=== PATIENT | male | born 1985 | race Hispanic/Latino ===

== ENCOUNTER 2017-05-23 01:28 | Emergency (ER) | payer SELFPAY ==
[~2017-05-23] VITALS: Ht 162.6 cm; Wt 72.7 kg
[2017-05-23 01:37] VITALS: BP 115/73; PULSE 63; RESP 15; O2SAT 100
--- NOTE | 2017-05-23 01:44 | ED.REPORT ---
HPI-Rash / Abscess Date of Service May 23, 2017 ED Provider: Valentín Branham MD The pt is a 31 y/o male with no pertinent hx who presents to the ED complaining of diffuse rash for several years which is now getting worse. Associated sx include intermittent itching. He denies wheezing, rash on the palms of his hands , rash inside his mouth and family hx of similar sx. The pt's job involves concrete work. The pt is at risk for HIV due to multiple prostitute sexual contact. He denies using IV drugs and having male sexual partners. He has been tested for HIV in the past which resulted negative. Nursing Notes Stated Complaint: RASH ON BOTH ARMS Chief Complaint: Skin Rash/Abscess Nursing Notes Reviewed: Yes Allergies: Coded Allergies: No Known Allergies (Unverified , 06/24/13) Scheduled Loratadine (Claritin) 10 Mg Capsule 10 MG PO DAILY Prednisone (PredniSONE) 20 Mg Tablet 60 MG PO DAILY Triamcinolone Acetonide (Triamcinolone Acetonide) 60 Ml Lotion 1 APPLIC TOP BID General Time Seen by MD: 01:43 Chief Complaint Rash Hx Obtained From: Patient Arrived By: Walk-in Onset Occurred: More than a week ago... (>6 months) Symptom Duration: Since onset Severity: Current: No pain currently Severity: Maximum: No pain Recent Healthcare: No recent doctor visit Past Medical History Past Medical History Risk factor for HIV. Tested negative in the past. Past Surgical History none reported Smoking History Unknown if Ever Smoker Social History Other Social History: Good social support Ambulatory Status Independent Review of Systems Denies: rash on the palms of his hands, rash inside his mouth Respiratory: Denies: Wheezing Skin: Reports Itching (intermittent), Reports Rash (diffuse) Complete sys rev & neg: except as marked. Physical Exam Initial Vital Signs Vital Signs (First) Date Time Temp Pulse Resp B/P Pulse Ox O2 Delivery O2 Flow Rate FiO2 05/23/17 01:37 36.3 63 15 115/73 100 Room Air Initial VS: Reviewed Head / Eyes: Atraumatic, Normocephalic Neck: Supple, Non-tender, Full range of motion Respiratory: Breath sounds normal, Clear to auscultation, No respiratory distress Cardiovascular: Regular rate & rhythm, Heart sounds normal, Intact distal pulses Abdomen / GI: Soft, Non-tender Extremities: Vascular intact, Neuro intact, No swelling, No tenderness Neurologic: Alert, Oriented, Nonfocal General/Constitutional: Awake, Alert, No acute distress, Cooperative Skin: Atraumatic, Warm, Dry, Intact Maculopapular rash prominent on the back of his hands, upper chest, neck, arms, and back. Palms, mouth and sclera are clear. Interpretation & Diagnostics Lab Results Interpretation Result Diagram: 05/23/17 0220 05/23/17 0220 Test 05/23/17 02:20 White Blood Count 8.1th/mm3 (3.8-10.1) Red Blood Count 4.61mil/mm3 (4.40-5.80) Hemoglobin 13.8g/dL (13.8-17.2) Hematocrit 40.7% (41.0-50.0) Mean Corpuscular Volume 88.3fL (81-100) Mean Corpuscular Hemoglobin 29.9pg (27.0-35.0) Mean Corpuscular Hemoglobin Concent 33.9% (32.0-37.0) Red Cell Distribution Width 13.6% (12.3-15.4) Platelet Count 202bil/L (150-400) Neutrophils (%) (Auto) 49.5% (40-74) Lymphocytes (%) (Auto) 35.4% (14-46) Monocytes (%) (Auto) 10.6% (4-12) Eosinophils (%) (Auto) 4.0% (0-5) Basophils (%) (Auto) 0.4% (0-3) Erythrocyte Sedimentation Rate 1mm/hr (0-15) Sodium Level 144mEq/L (134-144) Potassium Level 3.8mEq/L (3.5-5.2) Chloride Level 104mEq/L (97-108) Carbon Dioxide Level 26mmol/L (18-29) Blood Urea Nitrogen 24mg/dL (6-20) Creatinine 1.03mg/dL (0.76-1.27) Estimat Glomerular Filtration Rate 91mL/min (>59) Glucose Level 78mg/dL (60-99) Calcium Level 9.2mg/dL (8.5-10.1) Total Bilirubin 0.3mg/dL (0.0-1.2) Aspartate Amino Transf (AST/SGOT) 24U/L (0-50) Alanine Aminotransferase (ALT/SGPT) 22U/L (0-44) Alkaline Phosphatase 61U/L (25-150) Total Protein 6.9g/dL (6.4-8.4) Albumin 4.4g/dL (3.4-5.0) Hold Rothman Top Tube Received (Received) Re-Eval/Medical Decision Med Decision/Clinical Course 31-year-old with maculopapular scaling rash consistent with eczema, and suggestive of contact dermatitis. Possibility of allergy to blue disperse dye discussed. Follow-up at PCP office for referral to dermatology. Appropriate clothing choices and laundry products discussed. Simple diet discussed. Begun with triamcinolone lotion, very brief prednisone course, and loratadine for itch. Re-Evaluation/Progress : Time of Eval: 03:38 Re-Evaluation/Progress Note: Rechecked pt. Discussed lab results, diagnosis and plan to discharge. Pt understands and agrees with the plan. F/U instruction and RTER warning given. All questions addressed. Counseled Regarding: Diagnosis, Lab results, Need for follow-up, When/why to return to ED Discharge & Departure Impression: Primary Impression: Allergic dermatitis Additional Impressions: Eczema Eczema type: unspecified Qualified Code: L30.9 - Dermatitis, unspecified Contact dermatitis Disposition: Home Discharge Condition All VS Reviewed: Yes Condition: Stable Patient Instructions: Eczema (ED) Additional Instructions: Begin Kenalog lotion twice daily to all affected areas except the face. Use hydrocortisone 1% cream for the face. Begin Claritin daily. Begin prednisone three tablets daily for four days only then stop. Follow up at [facility] in the office. They can refer you to dermatology. This is an allergic reaction to some exposure, whether food or other material is not clear. The areas of your neck and back appears to be potentially a contact dermatitis. This can be to laundry products. It can also be to dyes that are found commonly in many dark clothes. It is called disperse blue dye, and it is frequently used in polyester and other synthetics, generally of dark color such as black, blue, and green. Might be best to limit contact with your skin to light-colored cotton clothing only. Get nonallergenic laundry products and use exclusively. Do not use dryer sheets or other scents. Persil unscented would be a good example. You can also use baby laundry products such as dreft unscented. Run a second rinse if possible on your laundry. Do not use fabric softener. Referrals: [facility] (PCP) [place] Attestation Portions of this note were transcribed by Silva Salinas. I,, personally performed the history, physical exam and medical decision-making;I reviewed and confirmed the accuracy of the information in the transcribed note. Signed by Alberto Salmeron. 05/23/17 copies to: [facility] Valentín Branham MD May 23, 2017 01:44 Silva Salinas May 23, 2017 01:47
[2017-05-23 02:27] LABS: BASOPHILS % (AUTO) 0.4 % (0-3); MONOCYTES % (AUTO) 10.6 % (4-12); Mean Corpuscular Hemoglobin 29.9 pg (27.0-35.0); Mean Corpuscular Volume 88.3 fL (81-100); NEUTROPHILS % (AUTO) 49.5 % (40-74); Platelet Count 202 bil/L (150-400)
[2017-05-23 02:45] LABS: ERYTHROCYTE SEDIMENTATION RATE 1 mm/hr (0-15)
[2017-05-23] MEDS ORDERED: predniSONE 20 mg Tablet PO ONE (03:25)
[2017-05-23] MEDS ORDERED: LORA10CA PO (03:33)
[2017-05-23] MEDS ORDERED: TRIA60LO3 TOP (03:33)
[2017-05-23] MEDS ORDERED: PRE20 PO (03:48)
[2017-05-23 03:55] VITALS: BP 115/74; PULSE 67; RESP 18; O2SAT 97
== END 2017-05-23 03:55 | disposition home or self-care (01) ==
LOC: SED 01:28
DX: L23.89 Allergic contact dermatitis due to other agents (principal)
CPT/HCPCS: 36415; 80053; 85025; 85651; 86038; 86592; 99283; G0433